=== PATIENT | female | born 1945 | race Caucasian/White ===

== ENCOUNTER 2016-08-19 14:46 | Emergency (ER) | payer MEDICARE, BC ==
[2016-08-19 15:15] VITALS: BP 143/51
--- NOTE | 2016-08-19 16:15 | EDM.PDOC ---
ED HPI GENERAL MEDICAL PROBLEM - General Chief Complaint: Lower Extremity Injury/Pain Stated Complaint: DIABETIC/LEGS WEEPING/INFECTED Time Seen by Provider: 08/19/16 16:15 Source of Information: Reports: Patient History Limitations: Reports: No Limitations - History of Present Illness INITIAL COMMENTS - FREE TEXT/NARRATIVE: Michelle is a 70 year old diabetic female who presents to the ED today with c/o open wounds to right anterior lower leg. Patient reports chronic drainage from peripheral vascular disease and diabetic neuropathy. Patient's applies bacitracin and does daily dressing changes for patient. Patient and her live in [place] during the winter, they are here in town until September. Patient denies any fever/chills/nausea/vomiting. Onset: Today Leg Pain Score (Numeric/FACES): 7 - Related Data Allergies Allergy/AdvReac Type Severity Reaction Status Date / Time codeine Allergy Hypotension Verified 08/19/16 15:19 Home Meds: Home Meds Enalapril [Vasotec] 20 mg 08/19/16 [History] Fish Oil/DHA/EPA [Fish Oil 1,200 MG] 1,200 mg DAILY 08/19/16 [History] Gabapentin [Neurontin] 300 mg BID 08/19/16 [History] Hydrochlorothiazide 25 mg 08/19/16 [History] Loratadine [Claritin] 10 mg DAILY 08/19/16 [History] Meloxicam 15 mg 08/19/16 [History] Metoprolol Succinate 200 mg 08/19/16 [History] Pioglitazone [Actos] 30 mg 08/19/16 [History] Potassium Chloride [Klor-Con] 20 meq DAILY 08/19/16 [History] Simvastatin [Zocor] 40 mg PO BEDTIME 08/19/16 [History] busPIRone [Buspar] 15 mg BID 08/19/16 [History] metFORMIN [Glucophage] 08/19/16 [History] Past Medical History HEENT History: Reports: Impaired Vision Cardiovascular History: Reports: High Cholesterol, Hypertension Musculoskeletal History: Reports: Osteoarthritis Psychiatric History: Reports: Anxiety Endocrine/Metabolic History: Reports: Diabetes, Type II, Obesity/BMI 30+ Social & Family History - Tobacco Use Smoking Status *Q: Never Smoker - Caffeine Use Caffeine Use: Reports: None - Recreational Drug Use Recreational Drug Use: No Review of Systems - Review of Systems Review Of Systems: ROS reveals no pertinent complaints other than HPI. ED EXAM, GENERAL - Physical Exam Exam: See Below Exam Limited By: No Limitations General Appearance: Alert, WD/WN, No Apparent Distress, Obese Head: Atraumatic Respiratory/Chest: No Respiratory Distress, Lungs Clear Cardiovascular: Normal Peripheral Pulses, Regular Rate, Rhythm Peripheral Pulses: 1+: Dorsalis Pedis (L), Dorsalis Pedis (R) GI/Abdominal: Normal Bowel Sounds, Soft, Non-Tender Extremities: Other (discoloration to bilateral lower extremities consistent with PVD. open wounds to right anterior lower leg, 3 total measauring 3, 2, 1.5 cm. surrounding erythema, warm to touch, serous drainage) Neurological: Alert, Oriented, CN II-XII Intact Course - Vital Signs Text/Narrative:: Michelle is a 70 year old diabetic female who presents to the ED today with c/o open wounds to anterior proctor. Please refer to HPI and focused exam. Patient on exam is well hydrated, she is non-toxic appearing. CBC obtained and returns with a normal white count. HGB stable at 10.6. CMP with mildly elevated glucose of 171 and creatinine of 1.1 and is otherwise unremarkable. Aquacel was placed on wounds and covered with 2 step coban compression wrap. I will start patient on Keflex for early cellulitis. A request has been made for patient to be seen in clinic with Dr. Morin tomorrow or Saturday. Reasons to return to the ED discussed. Patient instructed to keep dressing on until clinic appt. Patient agreeable to plan of care and questions were answered prior to discharge. Patient discharged in stable condition. Last Recorded V/S: Last Vital Signs Temp 36.5 C 08/19/16 15:14 Pulse 89 08/19/16 15:14 Resp 20 08/19/16 15:14 BP 143/51 H 08/19/16 15:14 Pulse Ox - Orders/Labs/Meds Labs: Laboratory Tests 08/19/16 08/19/16 Range/Units 16:26 16:26 WBC 6.7 (4.5-11.0) K/uL RBC 3.61 (3.30-5.50) M/uL Hgb 10.6 L (12.0-15.0) g/dL Hct 35.0 L (36.0-48.0) % MCV 97 (80-98) fL MCH 29 (27-31) pg MCHC 30 L (32-36) % Plt Count 188 (150-400) K/uL Neut % (Auto) 67 H (36-66) % Lymph % (Auto) 20 L (24-44) % [place] % (Auto) 12 H (2-6) % Eos % (Auto) 1 L (2-4) % Baso % (Auto) 0 (0-1) % Sodium 141 (140-148) mmol/L Potassium 4.2 (3.6-5.2) mmol/L Chloride 104 (100-108) mmol/L Carbon Dioxide 29 (21-32) mmol/L Anion Gap 7.6 (5.0-14.0) mmol/L BUN 21 H (7-18) mg/dL Creatinine 1.1 H (0.6-1.0) mg/dL Est Cr Clr Drug Dosing 45.62 mL/min Estimated GFR (MDRD) 49 L (>60) Glucose 171 H (74-106) mg/dL Calcium 9.6 (8.5-10.1) mg/dL Total Bilirubin 0.8 (0.2-1.0) mg/dL AST 20 (15-37) U/L ALT 20 (12-78) U/L Alkaline Phosphatase 87 (46-116) U/L Total Protein 6.9 (6.4-8.2) g/dL Albumin 3.2 L (3.4-5.0) g/dL Globulin 3.7 H (2.3-3.5) g/dL Albumin/Globulin Ratio 0.9 L (1.2-2.2) Departure - Departure Time of Disposition: 17:15 Disposition: Home, Self-Care 01 Condition: Good Clinical Impression: Venous stasis of both lower extremities Cellulitis Qualifiers: Site of cellulitis: extremity Site of cellulitis of extremity: lower extremity Laterality: right Qualified Code(s): L03.115 - Cellulitis of right lower limb Diabetic neuropathy Qualifiers: Diabetes mellitus type: type 2 Diabetes mellitus complication detail: diabetic polyneuropathy Qualified Code(s): E11.42 - Type 2 diabetes mellitus with diabetic polyneuropathy - Discharge Information Instructions: Cellulitis, Adult Referrals: PCP,None [Primary Care Provider] - Forms: ED Department Discharge Additional Instructions: Michelle, Please keep leg wrapped. You should here from Dr. Morin's clinic tomorrow for appt later tomorrow or Saturday. Take Keflex as prescribed. Return to the ED with any fever, chills or worsening symptoms. It was nice meeting you. Take care.
== END 2016-08-19 17:11 | disposition home or self-care (01) ==
LOC: JP.ED 14:46
DX: L03.115 Cellulitis of right lower limb (principal); I87.8 Other specified disorders of veins; H54.7 Unspecified visual loss; E78.00 Pure hypercholesterolemia, unspecified; I10 Essential (primary) hypertension; M19.90 Unspecified osteoarthritis, unspecified site; E66.9 Obesity, unspecified; F41.9 Anxiety disorder, unspecified; E11.42 Type 2 diabetes mellitus with diabetic polyneuropathy; Z88.5 Allergy status to narcotic agent; Z79.899 Other long term (current) drug therapy; Z79.84 Long term (current) use of oral hypoglycemic drugs
CPT/HCPCS: 36415; 80053; 85025; 99283

== ENCOUNTER 2016-09-09 06:13 | Emergency (ER) | payer MEDICARE, BC ==
[2016-09-09] MEDS ORDERED: Sodium Chloride 0.9% 1,000 ML IV SCH (07:30)
[2016-09-09] MEDS ORDERED: Sodium Chloride 0.9% 10 ML Syringe FLUSH PRN (07:30)
--- NOTE | 2016-09-09 08:58 | EDM.PDOC ---
ED HPI GENERAL MEDICAL PROBLEM - General Chief Complaint: Lower Extremity Injury/Pain Stated Complaint: MEDICAL VIA NORTH Time Seen by Provider: 09/09/16 07:17 Source of Information: Reports: Family History Limitations: Reports: No Limitations - History of Present Illness INITIAL COMMENTS - FREE TEXT/NARRATIVE: This lady arrived by ambulance from home. She had fallen at home when she went up to go to the afternoon and injured her left great toe skin her knees. Her however he gives a story that she recently had some wound care for her leg and surgery was can be planned but she had some heart fluttering. She was seen by the color worker in [place] who doubled her Lasix. Her said she' s lost 40 pounds in the past week and now she is just too weak to get up. He had a great deal of trouble getting her up off the floor and onto the bed this morning. The lady denies any chest pain or palpitations. There's been no nausea vomiting or diarrhea. She does have an appointment with the color worker later this coming week in [place] Treatments [employer]: Reports: EKG, See EMS Report Knees Pain Score (Numeric/FACES): 6 - Related Data Allergies Allergy/AdvReac Type Severity Reaction Status Date / Time codeine Allergy Hypotension Verified 09/09/16 06:29 Home Meds: Home Meds Enalapril [Vasotec] 20 mg PO BID 08/19/16 [History] Fish Oil/DHA/EPA [Fish Oil 1,200 MG] 1,200 mg PO DAILY 08/19/16 [History] Gabapentin [Neurontin] 300 mg PO BID 08/19/16 [History] Hydrochlorothiazide 25 mg PO BID 08/19/16 [History] Loratadine [Claritin] 10 mg PO DAILY 08/19/16 [History] Meloxicam 15 mg PO DAILY 08/19/16 [History] Metoprolol Succinate 200 mg PO DAILY 08/19/16 [History] Pioglitazone [Actos] 30 mg PO DAILY 08/19/16 [History] Potassium Chloride [Klor-Con] 20 meq PO DAILY 08/19/16 [History] Simvastatin [Zocor] 40 mg PO BEDTIME 08/19/16 [History] busPIRone [Buspar] 15 mg PO BID 08/19/16 [History] metFORMIN [Glucophage] 1,000 mg PO BID 08/19/16 [History] Furosemide [Lasix] 40 mg PO DAILY 09/09/16 [History] Montelukast [Singulair] 10 mg PO BEDTIME 09/09/16 [History] Potassium Chloride [Klor-Con M20] 20 meq PO DAILY 09/09/16 [History] Past Medical History HEENT History: Reports: Impaired Vision Cardiovascular History: Reports: High Cholesterol, Hypertension Musculoskeletal History: Reports: Osteoarthritis Psychiatric History: Reports: Anxiety Endocrine/Metabolic History: Reports: Diabetes, Type II, Obesity/BMI 30+ - Infectious Disease History Infectious Disease History: Reports: Chicken Pox Social & Family History - Family History Family Medical History: Unobtainable - Tobacco Use Smoking Status *Q: Never Smoker Second Hand Smoke Exposure: No - Caffeine Use Caffeine Use: Reports: Coffee - Recreational Drug Use Recreational Drug Use: No Review of Systems - Review of Systems Review Of Systems: See Below Constitutional: Reports: No Symptoms Eyes: Reports: No Symptoms Ears: Reports: No Symptoms Nose: Reports: No Symptoms Mouth/Throat: Reports: No Symptoms Respiratory: Reports: No Symptoms Cardiovascular: Reports: No Symptoms GI/Abdominal: Reports: No Symptoms Musculoskeletal: Reports: Other (See history of present illness) Skin: Reports: Other (See history of present illness) Neurological: Reports: Other (She does tend to sleep a lot and apparently she may have sleep apnea but she would never tolerate anything over her face such as C Pap.) Psychiatric: Reports: No Symptoms ED EXAM, GENERAL - Physical Exam Exam: See Below Exam Limited By: Other (This lady is initially lying with her eyes closed and appears to be sleeping but she does awaken easily to voice. Anytime I go in the room she sort of has her head slumped over and appears asleep. She does awaken without much difficulty) General Appearance: Obese (Very obese lady appears cushingoid or maybe pickwickian) Eye Exam: Bilateral Eye: Normal Inspection Throat/Mouth: Normal Oropharynx Head: Atraumatic (Membranes moist) Respiratory/Chest: No Respiratory Distress, Lungs Clear Cardiovascular: Irregularly Irregular GI/Abdominal: Other (Very obese but nontender) Extremities: Other (She has chronic changes consistent with venous stasis. There is abrasion to the left great toe which is fairly significant a little bit on her left second toe and small abrasions to both knees) Neurological: Oriented, CN II-XII Intact, Other (See general above) Psychiatric: Normal Affect Skin Exam: Warm, Dry Course - Vital Signs Text/Narrative:: ST or T changes second EKG done about 3 hours later is unchanged. Last Recorded V/S: Last Vital Signs Temp 37.2 C 09/09/16 10:43 Pulse 76 09/09/16 10:43 Resp 16 09/09/16 10:43 BP 128/59 L 09/09/16 10:43 Pulse Ox 92 L 09/09/16 10:43 - Orders/Labs/Meds Orders: Active Orders 24 hr Category Date Time Status EKG Documentation Completion [RC] ASDIRECTED Care 09/09/16 07:30 Active Chest 1V Frontal [CR] Urgent Exams 09/09/16 07:29 Taken UA W/MICROSCOPIC [URIN] Urgent Lab 09/09/16 07:29 Uncollected Sodium Chloride 0.9% [Normal Saline] 1,000 ml Med 09/09/16 07:30 Active IV ASDIRECTED Sodium Chloride 0.9% [Saline Flush] Med 09/09/16 07:30 Active 10 ml FLUSH ASDIRECTED PRN Saline Lock Insert [OM.PC] Urgent Oth 09/09/16 07:29 Ordered EKG 12 Lead [EK] Urgent Ther 09/09/16 07:29 Ordered Medication Orders Sodium Chloride (Normal Saline) 1,000 mls @ 999 mls/hr IV ASDIRECTED ABBY Last Admin: 09/09/16 08:15 Dose: 999 mls/hr Sodium Chloride (Saline Flush) 10 ml FLUSH ASDIRECTED PRN PRN Reason: Keep Vein Open Last Admin: 09/09/16 08:15 Dose: 10 ml Labs: Laboratory Tests 09/09/16 09/09/16 09/09/16 Range/Units 08:05 08:05 08:10 WBC 11.5 H (4.5-11.0) K/uL RBC 3.31 (3.30-5.50) M/uL Hgb 9.7 L (12.0-15.0) g/dL Hct 31.6 L (36.0-48.0) % MCV 96 (80-98) fL MCH 29 (27-31) pg MCHC 31 L (32-36) % Plt Count 173 (150-400) K/uL Neut % (Auto) 81 H (36-66) % Lymph % (Auto) 10 L (24-44) % [place] % (Auto) 9 H (2-6) % Eos % (Auto) 0 L (2-4) % Baso % (Auto) 0 (0-1) % Sodium 136 L (140-148) mmol/L Potassium 4.0 (3.6-5.2) mmol/L Chloride 99 L (100-108) mmol/L Carbon Dioxide 31 (21-32) mmol/L Anion Gap 10.0 (5.0-14.0) mmol/L BUN 28 H (7-18) mg/dL Creatinine 1.5 H (0.6-1.0) mg/dL Est Cr Clr Drug Dosing 33.36 mL/min Estimated GFR (MDRD) 34 L (>60) Glucose 247 H (74-106) mg/dL Calcium 8.9 (8.5-10.1) mg/dL Total Bilirubin 1.3 H D (0.2-1.0) mg/dL AST 47 H D (15-37) U/L ALT 21 (12-78) U/L Alkaline Phosphatase 86 (46-116) U/L Troponin I 0.065 H* (0.000-0.056) ng/mL Total Protein 7.0 (6.4-8.2) g/dL Albumin 2.9 L (3.4-5.0) g/dL Globulin 4.1 H (2.3-3.5) g/dL Albumin/Globulin Ratio 0.7 L (1.2-2.2) TSH, Ultra Sensitive 1.845 (0.358-3.740) uIU/mL 09/09/16 Range/Units 10:00 WBC (4.5-11.0) K/uL RBC (3.30-5.50) M/uL Hgb (12.0-15.0) g/dL Hct (36.0-48.0) % MCV (80-98) fL MCH (27-31) pg MCHC (32-36) % Plt Count (150-400) K/uL Neut % (Auto) (36-66) % Lymph % (Auto) (24-44) % [place] % (Auto) (2-6) % Eos % (Auto) (2-4) % Baso % (Auto) (0-1) % Sodium (140-148) mmol/L Potassium (3.6-5.2) mmol/L Chloride (100-108) mmol/L Carbon Dioxide (21-32) mmol/L Anion Gap (5.0-14.0) mmol/L BUN (7-18) mg/dL Creatinine (0.6-1.0) mg/dL Est Cr Clr Drug Dosing mL/min Estimated GFR (MDRD) (>60) Glucose (74-106) mg/dL Calcium (8.5-10.1) mg/dL Total Bilirubin (0.2-1.0) mg/dL AST (15-37) U/L ALT (12-78) U/L Alkaline Phosphatase (46-116) U/L Troponin I 0.073 H* (0.000-0.056) ng/mL Total Protein (6.4-8.2) g/dL Albumin (3.4-5.0) g/dL Globulin (2.3-3.5) g/dL Albumin/Globulin Ratio (1.2-2.2) TSH, Ultra Sensitive (0.358-3.740) uIU/mL Meds: Medications Generic Name Dose Route Start Last Admin Trade Name Freq PRN Reason Stop Dose Admin Sodium Chloride 1,000 mls @ 999 mls/hr 09/09/16 07:30 09/09/16 08:15 Normal Saline IV 999 mls/hr ASDIRECTED ABBY Administration Sodium Chloride 10 ml 09/09/16 07:30 09/09/16 08:15 Saline Flush FLUSH 10 ml ASDIRECTED PRN Administration Keep Vein Open - Re-Assessments/Exams Free Text/Narrative Re-Assessment/Exam: 09/09/16 08:50 Initially started a bolus of IV normal saline but she's received about 300 mL will turn it back to 150 an hour. 09/09/16 10:41 Initial troponin 0.065. 2 hours later troponin has risen to 0.073 A call has been placed to [place] for a non-STEMI. Were awaiting a return call presently Free Text/Narrative Re-Assessment/Exam: 09/09/16 10:[address] Haddad at [facility] and he has accepted the patient in transfer. The patient has received aspirin 324 mg orally 09/09/16 10:56 Departure - Departure Time of Disposition: 10:56 Disposition: DC/Tfer to Acute Hospital 02 Condition: Fair Clinical Impression: Non-STEMI (non-ST elevated myocardial infarction) - Discharge Information Forms: ED Department Discharge - My Orders Last 24 Hours: My Active Orders 09/09/16 07:29 Chest 1V Frontal [CR] Urgent UA W/MICROSCOPIC [URIN] Urgent Saline Lock Insert [OM.PC] Urgent EKG 12 Lead [EK] Urgent 09/09/16 07:30 EKG Documentation Completion [RC] ASDIRECTED Sodium Chloride 0.9% [Normal Saline] 1,000 ml IV ASDIRECTED Sodium Chloride 0.9% [Saline Flush] 10 ml FLUSH ASDIRECTED PRN - Assessment/Plan Last 24 Hours: My Active Orders 09/09/16 07:29 Chest 1V Frontal [CR] Urgent UA W/MICROSCOPIC [URIN] Urgent Saline Lock Insert [OM.PC] Urgent EKG 12 Lead [EK] Urgent 09/09/16 07:30 EKG Documentation Completion [RC] ASDIRECTED Sodium Chloride 0.9% [Normal Saline] 1,000 ml IV ASDIRECTED Sodium Chloride 0.9% [Saline Flush] 10 ml FLUSH ASDIRECTED PRN
[2016-09-09 11:15] VITALS: BP 124/60
--- NOTE | 2016-09-10 09:55 | CR ---
Chest 1V Frontal HISTORY: Pain COMPARISON: None FINDINGS: Slightly rotated film with lordotic projection. There is mild cardiomegaly. No acute conge stive change. No dense infiltrate or effusions.
== END 2016-09-09 12:30 ==
LOC: JP.ED 06:13
DX: I21.4 Non-ST elevation (NSTEMI) myocardial infarction (principal); I10 Essential (primary) hypertension; E78.00 Pure hypercholesterolemia, unspecified; M19.90 Unspecified osteoarthritis, unspecified site; F41.9 Anxiety disorder, unspecified; E11.9 Type 2 diabetes mellitus without complications; E66.9 Obesity, unspecified; Z68.43 Body mass index [BMI] 50.0-59.9, adult; Z88.5 Allergy status to narcotic agent; Z79.84 Long term (current) use of oral hypoglycemic drugs; Z79.899 Other long term (current) drug therapy; W01.0XXA Fall on same level from slipping, tripping and stumbling without subsequent striking against object, initial encounter
CPT/HCPCS: 36415; 71010; 80053; 84443; 84484; 85025; 93005; 96360; 99285; J7040; J7050; 93010